=== PATIENT | female | born 1940 | race Two or more races ===

== ENCOUNTER 2016-10-08 12:24 | Inpatient (IN) | payer MEDICARE, BC ==
[~2016-10-08] VITALS: Ht 160 cm; Wt 55.3 kg
--- NOTE | 2016-10-08 12:40 | NUR ---
GPS/RN PATIENT ADMITTED ON A 5150 HOLD FOR GD UNDER THE CARE OF DR DESIR AND PABLO LAMB. PER HOLD PATIENT CALLED POLICE STATION TWICE. STATING THAT THERE WERE [address]S IN FRONT OF HER APARTMENT. PATIENT LIVES ALONE AND SUFFERS FROM DEMENTIA, AND NO FAMILY MEMBERS ARE WILLING TO ASSIST WITH CARE. UPON FACE TO FACE EVALUATION PATIENT IS PARANOID, GUARDED, SAYING PEOPLE ARE TRYING TO POISON HER. BOTH DR'S AWARE OF ADMISSION, ALL ADMISSION PAPERWORK SIGNED, BELONGINGS COLLECTED,REFUSED SKIN ASSESSMENT. PER PATIENT SHE IS NOT TAKING ANY MEDICATION. PATIENT DENIES SI/HI AT THIS TIME, NO DISTRESS NOTED, WILL CONTINUE TO MONITOR Q 15 MIN FOR SAFETY AND BEHAVIOR.
[2016-10-08] MEDS ORDERED: MAG HYDROX/AL HYDROX/SIMETH 30 ML UDC PO PRN (13:00)
[2016-10-08] MEDS ORDERED: LORAZEPAM 0.5 MG TABLET PO PRN (13:00)
[2016-10-08] MEDS ORDERED: MAGNESIUM HYDROXIDE 30 ML UDC PO PRN (13:00)
[2016-10-08 14:39] VITALS: BP 131/91
[2016-10-08 16:00] VITALS: BP 106/88
[2016-10-08] MEDS: QUETIAPINE FUMARATE 25 MG TABLET PO SCH (17:00)
[2016-10-08] MEDS ORDERED: DEXTROSE 50%-WATER 50 ML DISP.SYRIN IV PRN (19:00)
--- NOTE | 2016-10-08 19:56 | NUR ---
GPS/RN NOTES PT RECEIVED ASLEEP, AROUSABLE. BREATHING EVEN AND UNLABORED. NO S/S OF SOB DISTRESS OR PAIN NOTED. BED IN LOW/LOCKED POSITION. BED RAILS UPX2. WILL CONTINUE TO MONITOR
[2016-10-08 20:00] VITALS: BP 121/67
[2016-10-08 20:34] VITALS: BP 121/67
[2016-10-08] MEDS: BLOOD SUGAR DIAGNOSTIC 1 EACH STRIP IN SCH (21:53)
--- NOTE | 2016-10-08 21:55 | NUR ---
GPS/RN NOTES BLOOD SUGAR 203, ADMINISTERED 4 UNITS OF INSULIN PER SLIDING SCALE. SNACKS PROVIDED AT BEDSIDE.
[2016-10-08] MEDS: *INSULIN REGULAR(HUMULIN R)HUM 100 UNIT/ML VIAL SQ PRN (22:00)
[2016-10-09] MEDS: ACETAMINOPHEN 325 MG TABLET PO PRN (00:43)
--- NOTE | 2016-10-09 00:45 | NUR ---
GPS/RN NOTES PT COMPLAINING OF 3/10 HEADACHE. ADMINISTERED PRN TYLENOL 650MG PO ORDERED. WILL CONTINUE TO MONITOR
[2016-10-09 06:39] LABS: BASOPHILS % (AUTO) 0.4 % (0.0-2.0); EOSINOPHILS # (AUTO) 0.1 /CMM (0.0-0.7); EOSINOPHILS % (AUTO) 1.9 % (0.0-6.0); HEMATOCRIT 39 % (33-45); HEMOGLOBIN 13.2 g/dL (11.5-14.8); LYMPHOCYTES # (AUTO) 2.3 /CMM (0.8-4.8); LYMPHOCYTES % (AUTO) 30.8 % (20.0-44.0); MEAN CORPUSCULAR HEMOGLOBIN 31 PG (26.0-33.0); MEAN CORPUSCULAR HGB CONC 34 g/dl (31.0-36.0); MEAN CORPUSCULAR VOLUME 93 fL (82-100); MONOCYTES # (AUTO) 0.5 /CMM (0.1-1.30); MONOCYTES % (AUTO) 6.1 % (2.0-12.0); NEUTROPHILS # (AUTO) 4.5 /CMM (1.8-8.9); NEUTROPHILS % (AUTO) 60.8 % (43.0-81.0); PLATELET COUNT (AUTO) 205 /CMM (150-450); RDW COEFFICIENT OF VARIATION 13.4 (11.5-15.0); RED BLOOD CELL COUNT(AUTO) 4.25 MIL/uL (4.0-5.2); WHITE BLOOD COUNT (AUTO) 7.4 K/uL (4.3-11.0)
--- NOTE | 2016-10-09 06:49 | NUR ---
GPS/RN CLOSING NOTES PT ASLEEP, AROUSABLE TO NAME, A/OX2-3. BREATHING EVEN AND UNLABORED. NO S/S OF DISTRESS NOTED. PT SLEPT INTERMITTENTLY THROUGHOUT THE NIGHT AND FREQUENTLY AMBULATED IN THE HALLWAY WITH WALKER. ORIENTED PT PRN. SAFETY PRECAUTIONS IMPLEMENTED THROUGHOUT SHIFT. VISUAL CHECK [id number]. WILL ENDORSE TO AM SHIFT RYNE. Addendum: 10/09/16 at 0654 by POPEYE LEIGH RN FREQUENT VISUAL CHECKS.
[2016-10-09 07:03] LABS: BILIRUBIN,TOTAL 0.4 mg/dL (0.2-1.0); CALCIUM, SERUM 9.2 mg/dL (8.5-10.1); CREATININE 0.5 mg/dL (0.6-1.3); MAGNESIUM 2.1 mg/dL (1.8-2.4); PHOSPHORUS 4.6 mg/dL (2.5-4.9); POTASSIUM 3.9 mmol/L (3.5-5.1); TOTAL PROTEIN, SERUM 5.7 g/dL (6.4-8.2)
[2016-10-09 08:00] VITALS: BP 138/59
[2016-10-09] MEDS: BLOOD SUGAR DIAGNOSTIC 1 EACH STRIP IN SCH ×4 (08:57→20:44)
[2016-10-09] MEDS: QUETIAPINE FUMARATE 25 MG TABLET PO SCH ×2 (09:00→16:37)
[2016-10-09] MEDS: INSULIN REGULAR, HUMAN 100 UNIT/ML 3 ML VIAL SQ PRN ×2 (09:03→12:38)
--- NOTE | 2016-10-09 10:39 | NUR ---
gps/rn Patient refused 0900 Seroquel 2.5 mg, explained risks and benefits, will continue to encourage patient to comply with prescribed regimen.
--- NOTE | 2016-10-09 12:47 | NUR ---
gps/rn Patient BS 176, refused 4 units regular insulin, explained risks and benefits, will continue to encourage to comply with MD regimen
[2016-10-09 16:07] VITALS: BP 119/66
--- NOTE | 2016-10-09 17:28 | NUR ---
GPS/RN Patient refusing 1730 accucheck, explained risks and benefits, continues to refuse, will continue to encourage to comply with regimen and treatments.
--- NOTE | 2016-10-09 19:35 | NUR ---
RN OPENING NOTES RECEIVED REPORT FROM ALEFT RN. FOUND Pt AWAKE, RESTING IN BED. NO S/S OF ACUTE DISTRESS OR SOB NOTED. Pt IS A/OX2, AMBULATORY, VERBAL, ABLE TO MAKE NEEDS KNOWN, SELECTIVE WITH MEDS AND INSULIN INTAKE. REFUSED LAST ACCUCHECK. WILL SEE IF Pt IS WILLING TO CHECK HER HS ACCUCHECK. Pt REFUSED SKIN ASSESSMENT. SAFETY MEASURES IN PLACE. BED LOW, LOCKED, HOB ELEVATED, SIDE RAILS UP. WILL CONTINUE TO MONITOR Pt THROUGHOUT THE NIGHT FOR SAFETY.
[2016-10-09 20:00] VITALS: BP 125/57
[2016-10-09] MEDS: *INSULIN REGULAR(HUMULIN R)HUM 100 UNIT/ML VIAL SQ PRN (20:56)
--- NOTE | 2016-10-09 20:58 | NUR ---
RN NOTES HS ACCUCHECK BG 195. ADMINISTERED 3UN OF INSULIN PER SLIDING SCALE.
--- NOTE | 2016-10-10 06:50 | NUR ---
RN CLOSING NOTES NO SIGNIFICANT CHANGES DURING THE NIGHT. NO S/S OF ACUTE DISTRESS OR SOB NOTED DURING THE SHIFT. ALL NEEDS MET AND ATTENDED TO. SAFETY MEASURES CARRIED OUT. WILL ENDORSE TO DAYSHIFT RN FOR Pt's RYNE AND SAFETY.
[2016-10-10] MEDS: BLOOD SUGAR DIAGNOSTIC 1 EACH STRIP IN SCH ×4 (07:30→21:25)
[2016-10-10 08:00] VITALS: BP 133/73
--- NOTE | 2016-10-10 08:46 | NUR ---
GPS/RN PT REFUSED ACCUCHECK IN AM OFFERED X3. PT DOES NOT WANT IT AND FIXATED ON GOING HOME
[2016-10-10] MEDS: QUETIAPINE FUMARATE 25 MG TABLET PO SCH ×2 (08:55→17:39)
--- NOTE | 2016-10-10 12:46 | NUR ---
GPS/RN Pt refused insulin coverage offered x3
[2016-10-10 16:05] VITALS: BP 113/55
--- NOTE | 2016-10-10 16:39 | NUR ---
Initial discharge plan: Pt. resides alone in an [id number] [place] [address] [address] [place] [address] but unsure if she will be able to return. SHMUEL will follow up with MD and pt. at a later time and will arrange for discharge.
[2016-10-10] MEDS: INSULIN REGULAR, HUMAN 100 UNIT/ML 3 ML VIAL SQ PRN (17:38)
[2016-10-10 20:00] VITALS: BP 106/59
[2016-10-10] MEDS: *INSULIN REGULAR(HUMULIN R)HUM 100 UNIT/ML VIAL SQ PRN (21:24)
[2016-10-11] MEDS: TEMAZEPAM 7.5 MG CAPSULE PO PRN (01:15)
--- NOTE | 2016-10-11 01:15 | NUR ---
GPS RN NOTE RESTORIL 7.5MG GIVEN FOR INSOMNIA.
[2016-10-11] MEDS: BLOOD SUGAR DIAGNOSTIC 1 EACH STRIP IN SCH ×4 (07:52→21:45)
[2016-10-11 07:57] VITALS: BP 141/59
[2016-10-11] MEDS: QUETIAPINE FUMARATE 25 MG TABLET PO SCH ×2 (08:29→17:01)
--- NOTE | 2016-10-11 12:28 | NUR ---
GPS/RN PT REFUSED ACCUCHECK FOR 1200 OFFERED X3
[2016-10-11 16:05] VITALS: BP 120/80
[2016-10-11] MEDS: INSULIN REGULAR, HUMAN 100 UNIT/ML 3 ML VIAL SQ PRN ×2 (17:07→21:53)
[2016-10-11 20:00] VITALS: BP 140/77
--- NOTE | 2016-10-11 20:00 | NUR ---
RECEIVED PATIENT WANDERING IN THE HALLWAY, DISORIENTED, WANTING TO GO OUT, AWOL RISK, NO SOB, DENIES ANY PAIN AT THIS TIME. UNSTEADY GAIT. UNABLE TO CARE FOR SELF. ORIENTED TO TIME AND SITUATION. WILL CONTINUE TO MONITOR.
[2016-10-11 21:00] VITALS: BP 140/77
--- NOTE | 2016-10-11 22:33 | NUR ---
ABLE TO PERFORM ACCUCHECK. PATIENT IS WANDERING IN THE HALLWAY. PER PATIENT, "THERE IS SOMEBODY OUTSIDE THAT WILL TAKE ME HOME." AWOL RISK. BEING MONITORED FOR WHEREABOUTS.
--- NOTE | 2016-10-12 02:53 | NUR ---
PATIENT UNABLE TO STAY ASLEEP. SEEN WANDERING THE HALLWAY, NO BEHAVIOR DISTURBANCE AT THIS TIME.
--- NOTE | 2016-10-12 06:36 | NUR ---
PATIENT AWAKE AND ALERT, UNABLE TO GO BACK TO SLEEP SINCE WAKING UP AT 0330, CALM, NO BEHAVIOR DISTURBANCE, ANSWERS QUESTIONS APPROPRIATELY, NO ADVERSE CHANGE OF CONDITION DURING SHIFT. BELIEVES WILL GO HOME TODAY, EXPLAINED TO PATIENT NO MD ORDER YET.
[2016-10-12 08:00] VITALS: BP 129/95
[2016-10-12] MEDS: BLOOD SUGAR DIAGNOSTIC 1 EACH STRIP IN SCH ×4 (08:37→21:39)
[2016-10-12] MEDS: QUETIAPINE FUMARATE 25 MG TABLET PO SCH ×2 (08:37→17:20)
[2016-10-12] MEDS: INSULIN REGULAR, HUMAN 100 UNIT/ML 3 ML VIAL SQ PRN ×3 (08:45→21:42)
--- NOTE | 2016-10-12 12:55 | NUR ---
GPS/MERLE BS 57, PROVIDED ORANGE JUICE, WILL CONTINUE TO MONITOR AND RECHECK BS. Addendum: 10/12/16 at 1258 by DIDIER CLEMENTE RN BS TAKEN AT 1206
--- NOTE | 2016-10-12 12:56 | NUR ---
GPS/RN BS, 144, NO ACUTE DISTRESS NOTED, WILL CONTINUE TO MONITOR FOR S/S.
[2016-10-12 16:24] VITALS: BP 137/60
[2016-10-12 19:50] VITALS: BP 155/69
--- NOTE | 2016-10-13 00:34 | NUR ---
Pt's blood sugar level last night was 187 mg/dl & 4 units of Regular Insulin was given SC as ordered by .
--- NOTE | 2016-10-13 00:34 | NUR ---
Pt has been confused, anxious, blunted, hard of hearing, very disorganized, quite fragmented, & repetitive but compliant with care.
[2016-10-13] MEDS: QUETIAPINE FUMARATE 25 MG TABLET PO SCH ×2 (07:58→17:20)
[2016-10-13 08:00] VITALS: BP 143/91
[2016-10-13] MEDS: BLOOD SUGAR DIAGNOSTIC 1 EACH STRIP IN SCH ×4 (08:00→21:25)
[2016-10-13] MEDS: INSULIN REGULAR, HUMAN 100 UNIT/ML 3 ML VIAL SQ PRN ×3 (08:02→17:37)
--- NOTE | 2016-10-13 14:51 | NUR ---
Pt. was referred and not accepted to [address] [place] [address] per Diana, from admission. Pt. does not have enough skilled needs to qualify for their facility.
--- NOTE | 2016-10-13 14:53 | NUR ---
Pt. was referred to [facility] [address], [place] [address] . Will follow up Addendum: 10/14/16 at 1253 by TERRI MI Per Sarah in admission, pt is accepted to [facility].
[2016-10-13 16:00] VITALS: BP 141/86
[2016-10-13 20:00] VITALS: BP 127/75
[2016-10-13 20:10] VITALS: BP 127/75
[2016-10-13] MEDS: *INSULIN REGULAR(HUMULIN R)HUM 100 UNIT/ML VIAL SQ PRN (21:34)
[2016-10-13] MEDS: TEMAZEPAM 7.5 MG CAPSULE PO PRN (21:36)
[2016-10-14] MEDS: ACETAMINOPHEN 325 MG TABLET PO PRN (03:05)
[2016-10-14 08:00] VITALS: BP 135/76
[2016-10-14] MEDS: QUETIAPINE FUMARATE 25 MG TABLET PO SCH ×2 (08:40→16:57)
[2016-10-14] MEDS: BLOOD SUGAR DIAGNOSTIC 1 EACH STRIP IN SCH ×4 (08:49→21:17)
[2016-10-14] MEDS: INSULIN REGULAR, HUMAN 100 UNIT/ML 3 ML VIAL SQ PRN ×3 (08:53→21:27)
[2016-10-14 16:00] VITALS: BP 118/57
--- NOTE | 2016-10-14 19:42 | NUR ---
GPS/RN NOTE: PATIENT UP AMBULATING AT THE HALLWAY, CALM, RESPONDS WHEN ENGAGED. NO ACUTE DISTRESS NOTED. WILL CONTINUE TO MONITOR Q 15 MINS. FOR SAFETY.
[2016-10-14 20:03] VITALS: BP 140/73
--- NOTE | 2016-10-14 21:27 | NUR ---
GPS/RN NOTE: ACCUCHECK 205 MG/DL, 4 UNITS REG. INSULIN SC ADMINISTERED. SANDWICH AND CRANBERRY JUICE GIVEN.
[2016-10-15 08:00] VITALS: BP 147/71
[2016-10-15] MEDS: QUETIAPINE FUMARATE 25 MG TABLET PO SCH (08:06)
[2016-10-15] MEDS: BLOOD SUGAR DIAGNOSTIC 1 EACH STRIP IN SCH ×2 (08:06→12:26)
[2016-10-15] MEDS: INSULIN REGULAR, HUMAN 100 UNIT/ML 3 ML VIAL SQ PRN ×2 (08:08→12:29)
--- NOTE | 2016-10-15 09:00 | NUR ---
RN-CO: PATIENT IS CALM AND COOPERATIVE TO CARE, DENIED PAIN AND DISCOMFORTS.DENIED SUICIDAL AND HOMICIDAL IDEATION. DR DESIR DISCONTINUE HOLD AND DISCHARGE PATIENT TODAY.
--- NOTE | 2016-10-15 13:30 | NUR ---
GPS/RN PATIENT CLEARED FOR DISCHARGE TO [facility] BY DR DESIR AND DIRECTOR TELEMETRY ALEXANDRU. ALL D/C PAPERWORK SIGNED BY PATIENT, BELONGINGS RETURNED, PACKET AND MEDICATIONS EXPLAINED TO PATIENT, VERBALIZED UNDERSTANDING.REPORT CALLED TO ANDREW AT FACILITY, REFUSED SKIN ASSESSMENT, PATIENT DENIES SI/HI AT TIME OF DISCHARGE, LEFT UNIT WITH EMT AT SIDE, CALM, COOPERATIVE,STABLE CONDITION, NO DISTRESS NOTED.
== END 2016-10-15 13:30 | DRG 885 ==
LOC: GPS 12:24
PROVIDERS: ADMIT Psychiatry & Neurology Psychosomatic Medicine; ATTEND Nurse Practitioner Acute Care
DX: F29 Unspecified psychosis not due to a substance or known physiological condition (principal); F02.80 Dementia in other diseases classified elsewhere, unspecified severity, without behavioral disturbance, psychotic disturbance, mood disturbance, and anxiety; E11.9 Type 2 diabetes mellitus without complications; G30.9 Alzheimer's disease, unspecified; F32.9 Major depressive disorder, single episode, unspecified
CPT/HCPCS: 36415; 80053-TC; 80061-TC; 82962-TC; 83690-TC; 83735-TC; 84100-TC; 85025-TC; J1815